=== PATIENT | female | born 1970 | race Two or more races ===

== ENCOUNTER 2017-10-31 09:07 | Observation (INO) | payer OTHER ==
[~2017-10-31 09:07] MED LIST: CEFAZOLIN 2 GM/50 ML (PMX) 50 ML IVPB; SOD CHLORIDE 0.9% 1,000 ML IV
[2017-10-31 09:57] LABS: ADD MAN DIFF? NO
[2017-10-31 10:16] LABS: BASOPHIL # 0.1 10^3/ul (0.0-0.1); BASOPHILS % 0.6 % (0.0-2.0); EOSINOPHILS # 0.3 10^3/ul (0.0-0.5); EOSINOPHILS % 2.9 % (0.0-7.0); HEMATOCRIT 40.3 % (37.0-47.0); HEMOGLOBIN 13.5 g/dl (12.0-16.0); LYMPHOCYTES # 2.9 10^3/ul (0.8-2.9); LYMPHOCYTES % 31.9 % (15.0-51.0); MEAN CORPUSCULAR HEMOGLOBIN 29.9 pg (29.0-33.0); MEAN CORPUSCULAR HGB CONC 33.5 g/dl (32.0-37.0); MEAN CORPUSCULAR VOLUME 89.4 fl (82.0-101.0); MONOCYTE # 0.6 10^3/ul (0.3-0.9); MONOCYTES % 6.1 % (0.0-11.0); NEUTROPHIL # 5.2 10^3/ul (1.6-7.5); NEUTROPHILS % 58.3 % (39.0-77.0); PLATELET COUNT 265 10^3/UL (140-415); RED BLOOD COUNT 4.51 10^6/ul (4.20-5.40)
[2017-10-31 10:31] LABS: ALANINE AMINOTRANSFERASE 23 IU/L (13-69); ALBUMIN 4.1 g/dl (3.3-4.9); ALBUMIN/GLOBULIN RATIO 1.24; ALKALINE PHOSPHATASE 83 IU/L (42-121); ANION GAP 13 (8-16); ASPARTATE AMINO TRANSFERASE 20 IU/L (15-46); BILIRUBIN,INDIRECT 0.5 mg/dl (0-1.1); BILIRUBIN,TOTAL 0.5 mg/dl (0.2-1.3); CARBON DIOXIDE 25 mmol/L (21-31); CHLORIDE 108 mmol/L (97-110); GLUCOSE 98 mg/dl (70-220); TOTAL PROTEIN 7.4 g/dl (6.1-8.1)
[2017-10-31 10:33] LABS: BLOOD UREA NITROGEN 10 mg/dl (7-20); CALCIUM 8.5 mg/dl (8.4-10.2); CREATININE 0.68 mg/dl (0.44-1.00); POTASSIUM 4.1 mmol/L (3.5-5.1); SODIUM 142 mmol/L (135-144)
[2017-10-31] MEDS ORDERED: ROCURONIUM 50 MG INJ (10:33)
[2017-10-31] MEDS ORDERED: LIDOCAINE 2% (SDV) 5 ML INJ (10:33)
[2017-10-31] MEDS ORDERED: PROPOFOL 20 ML (10:33)
[2017-10-31] MEDS ORDERED: MIDAZOLAM 1 MG/ML 2 ML INJ (10:33)
[2017-10-31 10:41] LABS: INR 0.93; PROTIME 12.5 Sec (11.9-14.9)
[2017-10-31 10:42] LABS: PARTIAL THROMBOPLASTIN TIME 27.2 Sec (25.0-35.0)
[2017-10-31] MEDS: STERILE WATER 1L IRRIG BTL IRR (11:25)
[2017-10-31] MEDS ORDERED: ONDANSETRON 4 MG INJ (11:45)
[2017-10-31] MEDS ORDERED: DEXAMETHASONE 4 MG/ML 1 ML INJ ×2 (11:46→11:47)
[2017-10-31] MEDS ORDERED: METOCLOPRAMIDE 10 MG INJ (11:47)
[2017-10-31] MEDS ORDERED: LABETALOL HCL 20MG INJ (11:53)
[2017-10-31] MEDS: THROMBIN 5000 UNIT VIAL (12:34)
[2017-10-31] MEDS ORDERED: SUGAMMADEX SODIUM 200 MG/2 ML VIAL IV (12:49)
[2017-10-31] MEDS ORDERED: LABETALOL HCL 20MG INJ IV (13:00)
[2017-10-31] MEDS ORDERED: HYDROmorphONE (0.2 MG/ML) 10ML SYG IV (13:00)
[2017-10-31] MEDS ORDERED: hydrALAzine 20 MG INJ IV (13:00)
[2017-10-31] MEDS ORDERED: FENTAnyl 50 MCG/ML VIAL IV ×2 (13:00)
[2017-10-31] MEDS ORDERED: MEPERIDINE 25 MG INJ IV (13:00)
[2017-10-31] MEDS ORDERED: OXYCODONE/ACETAMINOPHEN (5/325) TAB PO (13:00)
[2017-10-31] MEDS: D5W-0.45 NACL + KCL 20 MEQ 1,000 ML IV ×3 (13:19→23:26)
[2017-10-31] MEDS: FENTAnyl 50 MCG/ML VIAL IV ×2 (13:27→13:32)
[2017-10-31] MEDS ORDERED: ONDANSETRON 4 MG INJ IV (13:30)
[2017-10-31] MEDS ORDERED: morphine 2 MG INJ IV (13:30)
[2017-10-31] MEDS ORDERED: ACETAMINOPHEN 1000MG/100ML IV 100 ML IVPB (13:30)
[2017-10-31] MEDS ORDERED: NITROGLYCERIN (SL) 0.4 MG TAB (18:31)
[2017-10-31] MEDS: NITROGLYCERIN (SL) 0.4 MG TAB SL ×3 (18:34→18:55)
[2017-10-31 18:49] LABS: CALCIUM 8.1 mg/dl (8.4-10.2)
[2017-10-31 19:26] LABS: TROPONIN-I < 0.012 ng/ml (0.00-0.12)
[2017-11-01 01:29] LABS: CALCIUM 8.2 mg/dl (8.4-10.2)
[2017-11-01 01:41] LABS: TROPONIN-I < 0.012 ng/ml (0.00-0.12)
[2017-11-01] MEDS: D5W-0.45 NACL + KCL 20 MEQ 1,000 ML IV ×2 (04:44→07:07)
[2017-11-01 06:37] LABS: CALCIUM 7.8 mg/dl (8.4-10.2)
[2017-11-01 06:54] LABS: TROPONIN-I < 0.012 ng/ml (0.00-0.12)
[2017-11-01 13:11] LABS: CALCIUM 7.9 mg/dl (8.4-10.2)
[2017-11-01 15:58] LABS: ANION GAP 19 (8-16); BLOOD UREA NITROGEN 7 mg/dl (7-20); CALCIUM 8.1 mg/dl (8.4-10.2); CARBON DIOXIDE 23 mmol/L (21-31); CHLORIDE 105 mmol/L (97-110); CREATININE 0.62 mg/dl (0.44-1.00); GLUCOSE 116 mg/dl (70-220); POTASSIUM 3.6 mmol/L (3.5-5.1); SODIUM 143 mmol/L (135-144)
[2017-11-02 06:03] LABS: ADD MAN DIFF? NO
[2017-11-02 06:08] LABS: BASOPHIL # 0.1 10^3/ul (0.0-0.1); BASOPHILS % 0.5 % (0.0-2.0); EOSINOPHILS # 0.1 10^3/ul (0.0-0.5); EOSINOPHILS % 0.5 % (0.0-7.0); HEMATOCRIT 39.5 % (37.0-47.0); HEMOGLOBIN 13.4 g/dl (12.0-16.0); LYMPHOCYTES # 3.2 10^3/ul (0.8-2.9); LYMPHOCYTES % 24.6 % (15.0-51.0); MEAN CORPUSCULAR HEMOGLOBIN 30.3 pg (29.0-33.0); MEAN CORPUSCULAR HGB CONC 33.9 g/dl (32.0-37.0); MEAN CORPUSCULAR VOLUME 89.4 fl (82.0-101.0); MEAN PLATELET VOLUME 9.9 fl (7.4-10.4); MONOCYTE # 1.1 10^3/ul (0.3-0.9); MONOCYTES % 8.7 % (0.0-11.0); NEUTROPHIL # 8.4 10^3/ul (1.6-7.5); NEUTROPHILS % 65.4 % (39.0-77.0); PLATELET COUNT 292 10^3/UL (140-415); RED BLOOD COUNT 4.42 10^6/ul (4.20-5.40); RED CELL DISTRIBUTION WIDTH 13.4 % (11.5-14.5)
[2017-11-02 06:08] LABS: WHITE BLOOD COUNT 12.8 10^3/ul (4.8-10.8)
[2017-11-02 06:50] LABS: ANION GAP 17 (8-16); BLOOD UREA NITROGEN 12 mg/dl (7-20); CALCIUM 7.7 mg/dl (8.4-10.2); CARBON DIOXIDE 26 mmol/L (21-31); CHLORIDE 103 mmol/L (97-110); GLUCOSE 106 mg/dl (70-220); POTASSIUM 3.8 mmol/L (3.5-5.1); SODIUM 142 mmol/L (135-144)
[2017-11-02 18:35] LABS: CALCIUM 8.2 mg/dl (8.4-10.2)
[2017-11-03 07:06] LABS: CALCIUM 7.9 mg/dl (8.4-10.2)
== END 2017-11-03 15:20 | disposition home or self-care (01) ==
LOC: SDS 09:07 → REC 13:39 → MS2 14:55
DX: C73 Malignant neoplasm of thyroid gland (principal); E06.3 Autoimmune thyroiditis; Z91.013 Allergy to seafood
CPT/HCPCS: 60240; 80048; 80053; 82310; 84484; 85025; 85610; 85730; 88307; 93005; 93306

== ENCOUNTER 2018-08-27 13:27 | Emergency (ER) | payer OTHER ==
[2018-08-27 15:18] LABS: ADD MAN DIFF? NO
[2018-08-27 15:21] LABS: WHITE BLOOD COUNT 9.9 10^3/ul (4.8-10.8)
[2018-08-27 15:21] LABS: BASOPHILS % 0.4 % (0.0-2.0); EOSINOPHILS # 0.4 10^3/ul (0.0-0.5); EOSINOPHILS % 3.6 % (0.0-7.0); HEMATOCRIT 42.4 % (37.0-47.0); HEMOGLOBIN 14.1 g/dl (12.0-16.0); LYMPHOCYTES # 2.9 10^3/ul (0.8-2.9); MEAN CORPUSCULAR HEMOGLOBIN 29.7 pg (29.0-33.0); MEAN CORPUSCULAR HGB CONC 33.3 g/dl (32.0-37.0); MEAN CORPUSCULAR VOLUME 89.3 fl (82.0-101.0); MONOCYTE # 0.6 10^3/ul (0.3-0.9); MONOCYTES % 6.4 % (0.0-11.0); NEUTROPHIL # 5.9 10^3/ul (1.6-7.5); NEUTROPHILS % 60.1 % (39.0-77.0); PLATELET COUNT 277 10^3/UL (140-415); RED BLOOD COUNT 4.75 10^6/ul (4.20-5.40)
[2018-08-27 15:46] LABS: ANION GAP 9 (5-13); BLOOD UREA NITROGEN 13 mg/dl (7-20); CALCIUM 9.4 mg/dl (8.4-10.2); CARBON DIOXIDE 24 mmol/L (21-31); CHLORIDE 106 mmol/L (97-110); CREATININE 0.65 mg/dl (0.44-1.00); Estimated GFR > 60 mL/min (>60); GLUCOSE 110 mg/dl (70-220); POTASSIUM 4.3 mmol/L (3.5-5.1); SODIUM 139 mmol/L (135-144)
[2018-08-27 15:58] LABS: TROPONIN-I < 0.012 ng/ml (0.000-0.120)
== END 2018-08-27 18:49 | disposition home or self-care (01) ==
LOC: E/R 13:27
DX: R07.9 Chest pain, unspecified (principal); R40.2142 Coma scale, eyes open, spontaneous, at arrival to emergency department; R40.2362 Coma scale, best motor response, obeys commands, at arrival to emergency department; R40.2252 Coma scale, best verbal response, oriented, at arrival to emergency department
CPT/HCPCS: 71045; 80048; 84484; 84703; 85025; 93005; 99285-25